=== PATIENT | male | born 1995 | race Caucasian/White ===

== ENCOUNTER 2019-06-04 12:50 | Outpatient (CLI) | payer OTHER, SELFPAY ==
--- NOTE | ~2019-06-04 | US_ITS ---
EXAMINATION: US scrotum doppler EXAM DATE: 06/04/2019 13:37 INDICATION: Left testicular pain, intermittent. Swelling. TECHNIQUE: Multiple grayscale and Doppler images of the testicles and scrotum were obtained bilateral ly. There is no prior study for comparison. FINDINGS: There is bilateral testicular microlithiasis. Right testicle measures 4.2 x 2.7 x 2.1 cm and is morphologically normal. Low resistance Doppler anisha w confirmed. The epididymis is unremarkable. There is no hydrocele or varicocele. Left testicle measures 3.9 x 2.6 x 2.0 cm and is morphologically normal. Low resistance Doppler flow confirmed. The epididymis is unremarkable. There is a left-sided moderate-sized varicocele, vessel d iameter up to 3.7 mm. IMPRESSION: 1. Bilateral testicular microlithiasis. 2. Moderate-sized left varicocele. Reviewed, dictated and finalized at location B.
--- NOTE | ~2019-06-04 | CT_ITS ---
EXAMINATION: CT abdomen pelvis wo con EXAM DATE: 06/04/2019 13:36 INDICATION: Pain around navel while lifting something. TECHNIQUE: Spiral CT of the abdomen and pelvis was performed without contrast. Axial, coronal and s agittal images were reviewed. The dose-length product (DLP) for this examination was 303.40 mGy-cm. The exposure was tailored according to patient size (auto mA exposure control), and iterative recons truction (ASIR) was used as additional dose reduction technique. There is no prior study for compari son. FINDINGS: The liver, spleen, adrenal glands and pancreas are unremarkable. Gallbladder is unremarkab le. No biliary obstruction. There is no nephrolithiasis or hydronephrosis. The prostate is unrema rkable. The bladder is unremarkable. There is no retroperitoneal or pelvic lymphadenopathy. Tiny umbilical fat-containing hernia. No inguinal hernias. The appendix is normal. The stomach and small bowel are unremarkable. There is expected amount of c olonic stool. No free intraperitoneal gas. The heart is normal in size. There are no pericardial or pleural effusions. The lung bases are unremarkable. There are no osteoblastic or osteolytic les ions identified. IMPRESSION: 1. No acute intra-abdominal findings. 2. Tiny umbilical fat-containing hernia. Reviewed, dictated and finalized at location B.
== END 2019-06-04 12:51 | disposition home or self-care (01) ==
PROVIDERS: PCP Internal Medicine; Visit Provider Internal Medicine
DX: N50.819 Testicular pain, unspecified (principal); R10.9 Unspecified abdominal pain; K42.9 Umbilical hernia without obstruction or gangrene; I86.1 Scrotal varices; N50.89 Other specified disorders of the male genital organs
CPT/HCPCS: 74176; 76870; 93976

== ENCOUNTER 2020-06-29 16:10 | Outpatient (CLI) | payer OTHER, SELFPAY | END 2020-06-29 16:11 | disposition home or self-care (01) | LOC: ANHCOVIDVC 16:11 | PROVIDERS: PCP Internal Medicine | DX: Z23 Encounter for immunization (principal) | CPT/HCPCS: 0001A; 91300 ==

== ENCOUNTER 2020-07-20 17:21 | Outpatient (CLI) | payer OTHER, SELFPAY | END 2020-07-20 17:22 | LOC: ANHCOVIDVC 17:21 | PROVIDERS: PCP Internal Medicine | DX: Z23 Encounter for immunization (principal) | CPT/HCPCS: 0002A; 91300 ==